=== PATIENT | male | born 1960 | race Caucasian/White ===

== ENCOUNTER 2025-05-15 05:08 | Inpatient (IN) | payer MEDICAID, MEDICARE ==
[~2025-05-15] VITALS: Ht 177.8 cm; Wt 112.5 kg
[~2025-05-15 05:08] MED LIST: ALLO100T PO; ATOR40TA71 PO; BUME2TAB5 PO; DIGO250T73 PO; EMPA10TA3 PO; METF-446 PO; METO-325 PO; NAPR-1196 PO; RIVA20TA PO; SPIR-37 PO; VALS80TA32 PO
[2025-05-15 05:44] LABS: PLATELET COUNT (AUTO) 254 K/uL (150-450); RED BLOOD CELL COUNT(AUTO) 4.85 MIL/uL (4.50-5.90); RED CELL DISTRIBUTION WIDTH 17.7 % (11.5-14.5); WHITE BLOOD COUNT (AUTO) 8.6 K/uL (4.5-11.0)
[2025-05-15 05:54] LABS: CALCIUM, TOTAL 9.1 mg/dL (8.8-10.5); CREATININE 0.73 mg/dL (0.60-1.30); GLOMERULAR FILTR. RATE CALC > 60 mL/min (>60); GLUCOSE,RANDOM 133 mg/dL (70-110); SODIUM SERUM 143 mmol/L (136-145); UREA NITROGEN, BLOOD 14 mg/dL (7-18)
[2025-05-15 06:05] LABS: TROPONIN I-HIGH SENSITIVITY 373 ng/L (<76)
[2025-05-15] MEDS: NITROGLYCERIN 2% (1 GM=INCH) OINTMENT PACKET TP ONE (06:26)
[2025-05-15] MEDS: METOPROLOL TARTRATE 5 MG/5 ML VIAL IVP ONE (06:26)
[2025-05-15] MEDS: FUROSEMIDE 40 MG/4 ML VIAL IVP ONE (06:26)
[2025-05-15 07:15] LABS: APPEARANCE,URINE CLEAR (CLEAR); GLUCOSE, URINE (UA) NEGATIVE (NEGATIVE); LEUKOCYTE ESTERASE ,URINE NEGATIVE (NEGATIVE); NITRATE,URINE NEGATIVE (NEGATIVE); OCCULT BLOOD,URINE NEGATIVE (NEGATIVE); SPECIFIC GRAVITIY, URINE 1.024 (1.003-1.030)
[2025-05-15] MEDS ORDERED: ONDANSETRON HCL 4 MG/2 ML VIAL IVP PRN (09:00)
[2025-05-15] MEDS ORDERED: DEXTROSE 50%-WATER 25 GM/50 ML SYRINGE IVP PRN (09:00)
[2025-05-15] MEDS ORDERED: FUROSEMIDE 20 MG TABLET PO SCH (09:00)
[2025-05-15] MEDS: FUROSEMIDE 20 MG/2 ML VIAL IVP SCH (09:00)
[2025-05-15] MEDS: ATORVASTATIN CALCIUM 40 MG TABLET PO SCH (10:01)
[2025-05-15] MEDS: METOPROLOL SUCCINATE 25 MG ER TABLET PO SCH (10:01)
[2025-05-15] MEDS: SPIRONOLACTONE 25 MG TABLET PO SCH (10:01)
[2025-05-15] MEDS: DOCUSATE SODIUM 100 MG CAPSULE PO SCH (10:01)
[2025-05-15] MEDS: APIXABAN 5 MG TABLET PO SCH (10:02)
[2025-05-15] MEDS: ASPIRIN 81 MG CHEWABLE TABLET PO SCH (10:02)
[2025-05-15] MEDS: FAMOTIDINE 20 MG TABLET PO SCH (10:02)
[2025-05-15 10:40] VITALS: BP 136/86; PULSE 98; TEMP 98; O2SAT 99
[2025-05-15 11:13] VITALS: BP 128/88; PULSE 109; RESP 24; TEMP 97.7; O2SAT 98
[2025-05-15] MEDS: INSULIN LISPRO 100 UNITS/ML SQ PRN (12:30)
[2025-05-15] MEDS: INFLUENZA VIRUS VACCINE TVS (6MO+) 2025-26/PF 45 MCG/0.5 ML SYRINGE IM. ONE (12:30)
[2025-05-15] MEDS: SACUBITRIL/VALSARTAN 24-26 MG TABLET PO SCH (14:16)
[2025-05-15] MEDS: AMIODARONE HCL 150 MG in DEXTROSE 5%-WATER 97 ML IV ONE (14:37)
[2025-05-15] MEDS: AMIODARONE HCL 360 MG in DEXTROSE 5%-WATER 242.8 ML IV ONE (14:57)
[2025-05-15 16:23] VITALS: BP 114/89; PULSE 91; RESP 20; TEMP 98; O2SAT 96
[2025-05-15 17:55] LABS: GLUCOMETER DEV NAME(LOC) 5S.2E; GLUCOSE,POINT OF CARE 125 MG/DL (70-110)
[2025-05-15 18:41] LABS: GLUCOMETER DEV NAME(LOC) 5N.2C; GLUCOSE,POINT OF CARE 181 MG/DL (70-110)
[2025-05-15 20:04] VITALS: BP 110/88; PULSE 90; RESP 17; TEMP 97.9; O2SAT 98
[2025-05-15] MEDS: AMIODARONE HCL 540 MG in DEXTROSE 5%-WATER 250 ML IV ONE (20:19)
[2025-05-15 23:52] VITALS: BP 113/88; PULSE 86; RESP 19; TEMP 98.1; O2SAT 97
[2025-05-16 00:46] LABS: GLUCOMETER DEV NAME(LOC) 5S.2E; GLUCOSE,POINT OF CARE 165 MG/DL (70-110)
[2025-05-16 03:44] VITALS: BP 118/90; PULSE 90; RESP 18; TEMP 98; O2SAT 96
[2025-05-16 06:41] LABS: PLATELET COUNT (AUTO) 283 K/uL (150-450); RED BLOOD CELL COUNT(AUTO) 5.10 MIL/uL (4.50-5.90); RED CELL DISTRIBUTION WIDTH 17.7 % (11.5-14.5); WHITE BLOOD COUNT (AUTO) 9.1 K/uL (4.5-11.0)
[2025-05-16 06:56] LABS: CALCIUM, TOTAL 9.0 mg/dL (8.8-10.5); CREATININE 0.78 mg/dL (0.60-1.30); GLOMERULAR FILTR. RATE CALC > 60 mL/min (>60); GLUCOSE,RANDOM 124 mg/dL (70-110); SODIUM SERUM 141 mmol/L (136-145); UREA NITROGEN, BLOOD 14 mg/dL (7-18)
[2025-05-16 07:00] LABS: GLUCOMETER DEV NAME(LOC) 5S.2E; GLUCOSE,POINT OF CARE 134 MG/DL (70-110)
[2025-05-16 07:52] VITALS: BP 113/93; RESP 18; TEMP 98; O2SAT 98
[2025-05-16 10:20] LABS: TROPONIN I-HIGH SENSITIVITY 224 ng/L (<76)
[2025-05-16 11:33] VITALS: BP 102/85; PULSE 66; RESP 18; TEMP 97.5; O2SAT 99
[2025-05-16 12:01] LABS: GLUCOMETER DEV NAME(LOC) 5N.2C; GLUCOSE,POINT OF CARE 137 MG/DL (70-110)
[2025-05-16] MEDS: ACETAMINOPHEN 325 MG TABLET PO PRN (14:25)
[2025-05-16] MEDS: AMIODARONE HCL 750 MG in DEXTROSE 5%-WATER 485 ML IV SCH (15:07)
[2025-05-16 15:38] VITALS: BP 104/84; PULSE 96; RESP 18; TEMP 97.7; O2SAT 97
[2025-05-16] MEDS: RIVAROXABAN 20 MG TABLET PO SCH (17:19)
[2025-05-16] MEDS: PERFLUTREN PROTEIN-A MICROSPHERES 0.22 MG/ML 3 ML VIAL IVP ONE (17:49)
[2025-05-16 19:43] VITALS: BP 90/72; PULSE 107; RESP 18; TEMP 97.7; O2SAT 98
[2025-05-17] VITALS (7 sets, daily range): BP systolic 93–119; BP diastolic 69–97; PULSE 66–104; RESP 17–19; TEMP 97.5–98.4; O2SAT 97–100
[2025-05-17 07:46] LABS: PLATELET COUNT (AUTO) 270 K/uL (150-450); RED BLOOD CELL COUNT(AUTO) 4.96 MIL/uL (4.50-5.90); RED CELL DISTRIBUTION WIDTH 17.6 % (11.5-14.5); WHITE BLOOD COUNT (AUTO) 9.3 K/uL (4.5-11.0)
[2025-05-17 07:54] LABS: CALCIUM, TOTAL 8.4 mg/dL (8.8-10.5); CREATININE 0.81 mg/dL (0.60-1.30); GLOMERULAR FILTR. RATE CALC > 60 mL/min (>60); GLUCOSE,RANDOM 116 mg/dL (70-110); SODIUM SERUM 139 mmol/L (136-145); UREA NITROGEN, BLOOD 15 mg/dL (7-18)
[2025-05-17] MEDS: FUROSEMIDE 20 MG TABLET PO SCH (08:14)
[2025-05-17] MEDS: EMPAGLIFLOZIN 10 MG TABLET PO SCH (08:14)
[2025-05-17 08:41] LABS: GLUCOMETER DEV NAME(LOC) 5N.2C; GLUCOSE,POINT OF CARE 144 MG/DL (70-110)
[2025-05-17 08:41] LABS: GLUCOMETER DEV NAME(LOC) 5S.2E; GLUCOSE,POINT OF CARE 117 MG/DL (70-110)
[2025-05-17 08:41] LABS: GLUCOMETER DEV NAME(LOC) 5S.2E; GLUCOSE,POINT OF CARE 156 MG/DL (70-110)
[2025-05-17 14:01] LABS: GLUCOMETER DEV NAME(LOC) 5N.2C; GLUCOSE,POINT OF CARE 135 MG/DL (70-110)
[2025-05-17] MEDS: AMIODARONE HCL 200 MG TABLET PO SCH (17:30)
[2025-05-18 03:33] VITALS: BP 106/90; PULSE 99; RESP 18; TEMP 97.5; O2SAT 98
[2025-05-18 07:30] VITALS: BP 117/72; PULSE 97; RESP 18; TEMP 97.2; O2SAT 97
[2025-05-18 08:04] LABS: PLATELET COUNT (AUTO) 285 K/uL (150-450); RED BLOOD CELL COUNT(AUTO) 4.99 MIL/uL (4.50-5.90); RED CELL DISTRIBUTION WIDTH 17.6 % (11.5-14.5); WHITE BLOOD COUNT (AUTO) 8.1 K/uL (4.5-11.0)
[2025-05-18 08:12] LABS: CALCIUM, TOTAL 8.6 mg/dL (8.8-10.5); CREATININE 0.83 mg/dL (0.60-1.30); GLOMERULAR FILTR. RATE CALC > 60 mL/min (>60); GLUCOSE,RANDOM 118 mg/dL (70-110); SODIUM SERUM 141 mmol/L (136-145); UREA NITROGEN, BLOOD 13 mg/dL (7-18)
[2025-05-18 10:30] VITALS: BP 92/78; PULSE 78; RESP 19; TEMP 98; O2SAT 97
[2025-05-18 11:06] LABS: GLUCOMETER DEV NAME(LOC) 5S.2E; GLUCOSE,POINT OF CARE 114 MG/DL (70-110)
[2025-05-18 11:06] LABS: GLUCOMETER DEV NAME(LOC) 5S.2E; GLUCOSE,POINT OF CARE 164 MG/DL (70-110)
[2025-05-18 11:06] LABS: GLUCOMETER DEV NAME(LOC) 5N.2C; GLUCOSE,POINT OF CARE 135 MG/DL (70-110)
[2025-05-18 12:00] LABS: GLUCOMETER DEV NAME(LOC) 5N.2C; GLUCOSE,POINT OF CARE 162 MG/DL (70-110)
[2025-05-18 15:25] VITALS: BP 106/81; PULSE 94; RESP 18; TEMP 97.8; O2SAT 97
[2025-05-18 17:56] LABS: GLUCOMETER DEV NAME(LOC) 5S.2E; GLUCOSE,POINT OF CARE 122 MG/DL (70-110)
[2025-05-18 20:10] VITALS: BP 108/81; PULSE 88; RESP 19; TEMP 97.9; O2SAT 96
[2025-05-18 22:31] LABS: GLUCOMETER DEV NAME(LOC) 5N.2C; GLUCOSE,POINT OF CARE 143 MG/DL (70-110)
[2025-05-19 00:18] VITALS: BP 102/85; PULSE 93; RESP 20; TEMP 97.7; O2SAT 96
[2025-05-19 05:16] VITALS: BP 115/96; PULSE 99; RESP 19; TEMP 97.5; O2SAT 96
[2025-05-19 07:07] LABS: PLATELET COUNT (AUTO) 292 K/uL (150-450); RED BLOOD CELL COUNT(AUTO) 5.23 MIL/uL (4.50-5.90); RED CELL DISTRIBUTION WIDTH 17.7 % (11.5-14.5); WHITE BLOOD COUNT (AUTO) 8.6 K/uL (4.5-11.0)
[2025-05-19 07:11] VITALS: BP 100/80; PULSE 94; RESP 19; TEMP 98; O2SAT 96
[2025-05-19 07:20] LABS: CALCIUM, TOTAL 8.6 mg/dL (8.8-10.5); CREATININE 0.85 mg/dL (0.60-1.30); GLOMERULAR FILTR. RATE CALC > 60 mL/min (>60); GLUCOSE,RANDOM 113 mg/dL (70-110); SODIUM SERUM 140 mmol/L (136-145); UREA NITROGEN, BLOOD 15 mg/dL (7-18)
[2025-05-19] MEDS ORDERED: AMIO200T73 PO (10:23)
[2025-05-19] MEDS ORDERED: SACU1TAB PO (10:26)
[2025-05-19] MEDS ORDERED: METO25XL PO (10:28)
[2025-05-19 11:15] VITALS: BP 112/53; PULSE 101; RESP 20; TEMP 98.2; O2SAT 96
[2025-05-19 13:26] LABS: GLUCOMETER DEV NAME(LOC) 5S.2E; GLUCOSE,POINT OF CARE 141 MG/DL (70-110)
[2025-05-19 13:26] LABS: GLUCOMETER DEV NAME(LOC) 5S.2E; GLUCOSE,POINT OF CARE 115 MG/DL (70-110)
[2025-05-19 19:05] LABS: GLUCOMETER DEV NAME(LOC) 5N.2C; GLUCOSE,POINT OF CARE 123 MG/DL (70-110)
[2025-05-20] MEDS ORDERED: SPIR-37 PO (11:36)
[2025-05-20] MEDS ORDERED: METO25XL PO (11:36)
[2025-05-20] MEDS ORDERED: BUME2TAB5 PO (11:36)
[2025-05-20] MEDS ORDERED: RIVA20TA PO (11:36)
[2025-05-20] MEDS ORDERED: EMPA10TA3 PO (11:36)
[2025-05-20] MEDS ORDERED: AMIO200T73 PO (11:36)
== END 2025-05-19 13:20 | disposition home or self-care (01) | DRG 291 ==
LOC: EMS 05:09 → EDH 08:54 → 5N 10:30
PROVIDERS: ADMIT Internal Medicine; ATTEND Internal Medicine
PROC: 05HC33Z Insertion of Infusion Device into Left Basilic Vein, Percutaneous Approach (ICD-10-PCS; principal; 2025-05-16)
PROC: B54NZZA Ultrasonography of Left Upper Extremity Veins, Guidance (ICD-10-PCS; 2025-05-16)
DX: I11.0 Hypertensive heart disease with heart failure (principal); I50.23 Acute on chronic systolic (congestive) heart failure; Z95.1 Presence of aortocoronary bypass graft; Z79.01 Long term (current) use of anticoagulants; E11.9 Type 2 diabetes mellitus without complications; E66.01 Morbid (severe) obesity due to excess calories; I07.1 Rheumatic tricuspid insufficiency; I48.19 Other persistent atrial fibrillation; E78.5 Hyperlipidemia, unspecified; I25.10 Atherosclerotic heart disease of native coronary artery without angina pectoris; I25.5 Ischemic cardiomyopathy; I34.0 Nonrheumatic mitral (valve) insufficiency; I25.2 Old myocardial infarction; Z79.899 Other long term (current) drug therapy; Z83.3 Family history of diabetes mellitus; Z91.148 Patient's other noncompliance with medication regimen for other reason; Z68.35 Body mass index [BMI] 35.0-35.9, adult
CPT/HCPCS: 36245; 36569; 71045; 76937; 80048; 81003; 82962; 83735; 83880; 84484; 85025; 87081; 93005; 93306; 97116; 97163; 99291; C8924; J0282; J1938; J3490; J7060; 36415-L1; 36415-TC

== ENCOUNTER 2025-05-20 08:43 | Emergency (ER) | payer MEDICARE ==
[~2025-05-20] VITALS: Ht 177.8 cm; Wt 112.9 kg
[~2025-05-20 08:43] MED LIST changes: -ALLO100T PO; +AMIO200T73 PO; -DIGO250T73 PO; -METF-446 PO; -METO-325 PO; +METO25XL PO; -NAPR-1196 PO; +SACU1TAB PO; -VALS80TA32 PO
[2025-05-20 09:35] LABS: PLATELET COUNT (AUTO) 276 K/uL (150-450); RED BLOOD CELL COUNT(AUTO) 4.86 MIL/uL (4.50-5.90); RED CELL DISTRIBUTION WIDTH 17.5 % (11.5-14.5); WHITE BLOOD COUNT (AUTO) 8.5 K/uL (4.5-11.0)
[2025-05-20 09:42] LABS: CALCIUM, TOTAL 8.5 mg/dL (8.8-10.5); CREATININE 1.11 mg/dL (0.60-1.30); GLOMERULAR FILTR. RATE CALC > 60 mL/min (>60); GLUCOSE,RANDOM 149 mg/dL (70-110); SODIUM SERUM 142 mmol/L (136-145); UREA NITROGEN, BLOOD 17 mg/dL (7-18)
[2025-05-20 09:51] LABS: TROPONIN I-HIGH SENSITIVITY 56 ng/L (<76)
[2025-05-20] MEDS ORDERED: METO25XL PO (11:36)
[2025-05-20] MEDS ORDERED: BUME2TAB5 PO (11:36)
[2025-05-20] MEDS ORDERED: RIVA20TA PO (11:36)
[2025-05-20] MEDS ORDERED: AMIO200T73 PO (11:36)
[2025-05-20] MEDS ORDERED: SPIR-37 PO (11:36)
[2025-05-20] MEDS ORDERED: EMPA10TA3 PO (11:36)
[2025-05-20] MEDS: BUMETANIDE 1 MG TABLET PO ONE (12:23)
[2025-05-20] MEDS: SPIRONOLACTONE 25 MG TABLET PO ONE (12:23)
[2025-05-20] MEDS: AMIODARONE HCL 200 MG TABLET PO ONE (12:23)
[2025-05-20] MEDS: EMPAGLIFLOZIN 10 MG TABLET PO ONE (12:23)
[2025-05-20] MEDS: RIVAROXABAN 20 MG TABLET PO ONE (12:23)
[2025-05-20 14:17] VITALS: BP 130/64; PULSE 98; RESP 20; TEMP 98.2; O2SAT 97
== END 2025-05-20 14:17 | disposition home or self-care (01) ==
LOC: EMS 08:58
DX: F41.9 Anxiety disorder, unspecified (principal); I50.20 Unspecified systolic (congestive) heart failure; E11.9 Type 2 diabetes mellitus without complications; I11.0 Hypertensive heart disease with heart failure; I48.91 Unspecified atrial fibrillation; Z98.890 Other specified postprocedural states; Z79.899 Other long term (current) drug therapy
CPT/HCPCS: 71045; 80048; 83880; 84484; 85025; 93005; 99285; 36415-L1; 36415-TC